=== PATIENT | male | born 1935 | race Caucasian/White ===

== ENCOUNTER 2021-03-24 23:36 | Observation (INO) | payer OTHER, MEDICAID ==
[~2021-03-24] VITALS: Ht 177.8 cm; Wt 94.8 kg
--- NOTE | 2021-03-25 01:11 | EKG ---
[facility] [address] [place] [address] Test Date: 2021-03-25 Test Time: 00:13:33 Pat Name: CARLIE ZAMORANO Department: Room: Gender: M Non Profit Financial Controller: : 1935 Requested By: TEMI SANCHEZ Order Number: [id number] Reading MD: Livan Cuenca Measurements Intervals [place] Rate: 82 P: MN: QRS: -90 QRSD: 134 T: 63 QT: 404 QTc: 475 Interpretive Statements SINUS RHYTHM VENTRICULAR PREMATURE COMPLEX(ES) NON SPECIFIC INTRAVENTRICULAR BLOCK NON SPECIFIC ST-T WAVE CHANGES Electronically Signed On 03-26-2021 12:43:03 REPAIR ORDER CLERK by Livan Cuenca
[2021-03-25 01:52] LABS: BASO % 0 % (0-3); EOS % 0 % (0-3); HEMATOCRIT 31.8 % (39.0-53.0); HEMOGLOBIN 10.2 g/dL (13.0-17.5); LYMPH # 0.7 x10^3/uL (1.0-4.8); LYMPH % 5 % (24-48); MEAN CORPUSCULAR HEMOGLOBIN 30 pg (25-35); MEAN CORPUSCULAR HGB CONC 32 g/dL (31-37); MEAN CORPUSCULAR VOLUME 94 fL (79-100); MONO # 0.8 x10^3/uL (0.0-1.1); MONO % 6 % (0-9); NEUT # 12.6 x10^3/uL (1.8-7.7); NEUT % 89 % (31-73); PLATELET COUNT 269 x10^3/uL (140-400); RED BLOOD COUNT 3.37 x10^6/uL (4.30-5.70); RED CELL DISTRIBUTION WIDTH 15.7 % (11.5-14.5); WHITE BLOOD COUNT 14.2 x10^3/uL (4.0-11.0)
[2021-03-25 02:00] LABS: PROTHROMBIN TIME PATIENT 14.9 SEC (11.7-14.0)
[2021-03-25 02:04] LABS: ALBUMIN 1.3 g/dL (3.4-5.0); ALBUMIN/GLOBULIN RATIO 0.3 (1.0-1.7); CALCIUM 7.9 mg/dL (8.5-10.1); CREATININE 8.8 mg/dL (0.7-1.3); GFR 5.8; POTASSIUM 3.8 mmol/L (3.5-5.1); TOTAL BILIRUBIN 0.5 mg/dL (0.2-1.0); TOTAL PROTEIN 5.3 g/dL (6.4-8.2)
[2021-03-25] MEDS ORDERED: DEXTROSE 50% 25 GM / 50ML DISP.SYRIN. IV ONE ×4 (02:10→12:30)
[2021-03-25] MEDS ORDERED: MORPHINE SULFATE 2 MG/ML INJ. IVP ONE ×4 (03:00→04:30)
--- NOTE | 2021-03-25 03:27 | RAD ---
EXAM: RIGHT SHOULDER 2 VIEWS. HISTORY: Fall. COMPARISON: None. FINDINGS: No fractures are identified. There is superior subluxation of the humeral head Y-view but n ot clearly on the frontal projection. Acromioclavicular joint mildly widened at 9 mm. There are chron ic right rib fractures. IMPRESSION: 1. Superior subluxation of the humeral head is consistent with rotator cuff arthropathy. 2. Mild widening of the right acromial clavicular joint. Correlate for focal tenderness to exclude ac romioclavicular injury. Electronically signed by: Jose Jones MD (03/25/2021 3:24 AM) [facility]
--- NOTE | 2021-03-25 03:28 | RAD ---
EXAM: CT HEAD WITHOUT CONTRAST. HISTORY: Fall. TECHNIQUE: Computed tomography of the head was performed without intravenous contrast. One or more of the following individualized dose reduction techniques were utilized for this examination: 1. Automated exposure control. 2. Adjustment of the mA and/or kV according to patient size. 3. Use of iterative reconstruction technique. COMPARISON: None. FINDINGS: There is no intracranial hemorrhage. Hypoattenuation within the white matter indicates mode rate chronic microangiopathic change. Prominence of the lateral ventricles and hemispheric sulci theo cates moderate atrophy. There are small mucus retention cysts in the maxillary sinuses. There are changes of bilateral catara ct surgery. The temporal bones are unremarkable. The calvarium reveals no suspicious lesions. There a re atherosclerotic calcifications of the internal carotid and vertebral arteries. IMPRESSION: 1. No acute intracranial findings. 2. Moderate atrophy and chronic microangiopathic white matter change. Electronically signed by: Jose Jones MD (03/25/2021 3:26 AM) [facility]
[2021-03-25] MEDS ORDERED: GLIM2TAB7 PO ×2 (04:16→13:08)
[2021-03-25] MEDS ORDERED: LOPE2TAB27 PO (04:16)
[2021-03-25] MEDS ORDERED: CLOT10TR PO (04:16)
[2021-03-25] MEDS ORDERED: BUSP7.5T PO (04:16)
[2021-03-25] MEDS ORDERED: ATOR80TA72 PO (04:16)
[2021-03-25] MEDS ORDERED: MIDO5TAB4 PO ×2 (04:16→13:08)
[2021-03-25] MEDS ORDERED: ASPI-630 PO ×2 (04:16→13:08)
[2021-03-25] MEDS ORDERED: TAMS0.4C97 PO (04:16)
[2021-03-25] MEDS ORDERED: FINA5TAB4 PO ×2 (04:16→13:08)
--- NOTE | 2021-03-25 04:40 | PHYS DOC ---
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 Patient has difficulty providing history, and is essentially only able to signaled that his right shoulder is hurting him. Per EMS patient staff was notified by another patient that he had fallen and was screaming. Was found on the floor next to his bed after this unwitnessed fall. Patient did not come with an MAR, medical history, or facesheet. We called his facility they are not able to relate any medical history, but were able to give the medication list which includes: BuSpar Aspirin Tamsulosin Atorvastatin Glimepiride Finasteride Midodrine Clotrimazole Loperamide Review of Systems: Review of Systems: Unable to complete ROS secondary to mental status Heart Score: C/O Chest Pain: N/A Current Medications: Current Medications Medications (Trade) Dose Ordered Sig/Caesar Start Time Stop Time Status Last Admin Dose Admin Dextrose (Dextrose 50%-Water Syringe) 50 gm 1X ONCE 03/25/21 02:30 03/25/21 02:31 DC 03/25/21 02:20 50 GM Morphine Sulfate (Morphine Sulfate) 2 mg 1X ONCE 03/25/21 04:30 03/25/21 04:31 03/25/21 04:00 2 MG Allergies: Allergies: Allergies Coded Allergies Type Severity Reaction Last Updated Verified No Known Drug Allergies 03/25/21 No Physical Exam: PE: Constitutional: Somnolent, appears uncomfortable with any movement, signaling to his right shoulder he is in pain. HENT: Dried blood on the forehead, I am told that this was tract from a forearm skin tear. No significant bruising. Eyes: Pupils 1 mm, equal, round, reactive. Cardiovascular:Heart rate regular rhythm, no murmur [] Lungs & Thorax: Bilateral breath sounds clear to auscultation. Mild chest wall tenderness to palpation. [] Abdomen: Diffuse abdominal tenderness to palpation. Skin: Sacral pressure ulcer present. Small skin tear to left upper extremity, older skin tear with significant scabbing and surrounding erythema on the left hand. Back: No tenderness, no CVA tenderness. [] Extremities: Right upper extremity with tenderness over the distal clavicle/AC joint. Passive range of motion intact, but with pain especially with abduction. Right lower extremity BKA, stump with pressure wound. Neurologic: Somnolent, answers questions with yes/no, moving all extremities. Current Patient Data: Labs: Laboratory Tests Test 03/25/21 01:40 White Blood Count 14.2 x10^3/uL (4.0-11.0) H Red Blood Count 3.37 x10^6/uL (4.30-5.70) L Hemoglobin 10.2 g/dL (13.0-17.5) L Hematocrit 31.8 % (39.0-53.0) L Mean Corpuscular Volume 94 fL (79-100) Mean Corpuscular Hemoglobin 30 pg (25-35) Mean Corpuscular Hemoglobin Concent 32 g/dL (31-37) Red Cell Distribution Width 15.7 % (11.5-14.5) H Platelet Count 269 x10^3/uL (140-400) Neutrophils (%) (Auto) 89 % (31-73) H Lymphocytes (%) (Auto) 5 % (24-48) L Monocytes (%) (Auto) 6 % (0-9) Eosinophils (%) (Auto) 0 % (0-3) Basophils (%) (Auto) 0 % (0-3) Neutrophils # (Auto) 12.6 x10^3/uL (1.8-7.7) H Lymphocytes # (Auto) 0.7 x10^3/uL (1.0-4.8) L Monocytes # (Auto) 0.8 x10^3/uL (0.0-1.1) Eosinophils # (Auto) 0.0 x10^3/uL (0.0-0.7) Basophils # (Auto) 0.0 x10^3/uL (0.0-0.2) Prothrombin Time 14.9 SEC (11.7-14.0) H Prothrombin Time INR 1.2 (0.8-1.1) H Sodium Level 135 mmol/L (136-145) L Potassium Level 3.8 mmol/L (3.5-5.1) Chloride Level 100 mmol/L (98-107) Carbon Dioxide Level 24 mmol/L (21-32) Anion Gap 11 (6-14) Blood Urea Nitrogen 51 mg/dL (8-26) H Creatinine 8.8 mg/dL (0.7-1.3) H Estimated GFR (Cockcroft-Gault) 5.8 BUN/Creatinine Ratio 6 (6-20) Glucose Level 40 mg/dL (70-99) *L Calcium Level 7.9 mg/dL (8.5-10.1) L Total Bilirubin 0.5 mg/dL (0.2-1.0) Aspartate Amino Transferase (AST) 13 U/L (15-37) L Alanine Aminotransferase (ALT) 16 U/L (16-63) Alkaline Phosphatase 129 U/L (46-116) H Total Protein 5.3 g/dL (6.4-8.2) L Albumin 1.3 g/dL (3.4-5.0) L Albumin/Globulin Ratio 0.3 (1.0-1.7) L SARS-CoV-2 Antigen (Rapid) Negative (NEGATIVE) Laboratory Tests 03/25/21 01:40 Laboratory Tests 03/25/21 01:40 Vital Signs: Vital Signs Date Time Temp Pulse Resp B/P (MAP) Pulse Ox O2 Delivery O2 Flow Rate FiO2 03/25/21 02:53 98 Room Air 03/25/21 02:15 58 101/51 (68) 03/25/21 00:50 98.2 24 98.2 EKG: EKG: Irregular rhythm. Rate 82. PVCs. QRS widening, nonspecific IVCD. Radiology/Procedures: Radiology/Procedures: [] Impression: [facility] [address] [place], [place] [id number] IMAGING REPORT Signed PATIENT: CARLIE ZAMORANO ACCOUNT: [id number] : 1935 LOCATION: ER AGE: 85 SEX: M EXAM STATUS: REG ER ORD. PHYSICIAN: TEMI SANCHEZ MD REASON: fall PROCEDURE: SHOULDER 2+V RIGHT EXAM: RIGHT SHOULDER 2 VIEWS. HISTORY: Fall. COMPARISON: None. FINDINGS: No fractures are identified. There is superior subluxation of the humeral head Y-view but not clearly on the frontal projection. Acromioclavicular joint mildly widened at 9 mm. There are chronic right rib fractures. IMPRESSION: 1. Superior subluxation of the humeral head is consistent with rotator cuff a rthropathy. 2. Mild widening of the right acromial clavicular joint. Correlate for focal tenderness to exclude acromioclavicular injury. Electronically signed by: Jose Jones MD (03/25/2021 3:24 AM) [facility] DICTATED and SIGNED BY: TEMI JONES MD DATE: 03/25/21 [id number] [facility] [address] [place] [address] IMAGING REPORT Signed PATIENT: CARLIE ZAMORANO ACCOUNT: [id number] : 1935 LOCATION: ER AGE: 85 SEX: M EXAM STATUS: REG ER ORD. PHYSICIAN: TEMI SANCHEZ MD REASON: fall, PATIENT UNABLE TO HOLD STILL TO DO HEAD AND NECK AT THIS TIME PROCEDURE: CT HEAD WO CONTRAST EXAM: CT HEAD WITHOUT CONTRAST. HISTORY: Fall. TECHNIQUE: Computed tomography of the head was performed without intravenous contrast. One or more of the following individualized dose reduction techniques were utilized for this examination: 1. Automated exposure control. 2. Adjustment of the mA and/or kV according to patient size. 3. Use of iterative reconstruction technique. COMPARISON: None. FINDINGS: There is no intracranial hemorrhage. Hypoattenuation within the white matter indicates moderate chronic microangiopathic change. Prominence of the lateral ventricles and hemispheric sulci indicates moderate atrophy. There are small mucus retention cysts in the maxillary sinuses. There are changes of bilateral cataract surgery. The temporal bones are unremarkable. The calvarium reveals no suspicious lesions. There are atherosclerotic calcifications of the internal carotid and vertebral arteries. IMPRESSION: 1. No acute intracranial findings. 2. Moderate atrophy and chronic microangiopathic white matter change. Electronically signed by: Jose Jones MD (03/25/2021 3:26 AM) [facility] DICTATED and SIGNED BY: TEMI JONES MD DATE: 03/25/21 [id number] [facility] [address] [place] [address] IMAGING REPORT Signed PATIENT: CARLIE ZAMORANO ACCOUNT: [id number] : 1935 LOCATION: ER AGE: 85 SEX: M EXAM STATUS: REG ER ORD. PHYSICIAN: TEMI SANCHEZ MD REASON: fall PROCEDURE: CT CERVICAL SPINE WO CONTRAST EXAM: CT CERVICAL SPINE WITHOUT CONTRAST. HISTORY: Fall. TECHNIQUE: Computed tomography of the cervical spine was performed without intravenous contrast. One or more of the following individualized dose reduction techniques were utilized for this examination: 1. Automated exposure control. 2. Adjustment of the mA and/or kV according to patient size. 3. Use of iterative reconstruction technique. COMPARISON: None. FINDINGS: Alignment is maintained. 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 No fractures are identified. Degenerative disc disease is severe at C6-7, moderate at C5-6 and mild from C3 through C5. There is no prevertebral soft tissue swelling. At C2-3, there is no significant stenosis. At C3-4, there is a small posterior disc-osteophyte complex. Uncovertebral os teoarthritis is moderate bilaterally. Neural foraminal stenosis is moderate bilaterally. At C4-5, there is a small posterior disc-osteophyte complex. Uncovertebral osteoarthritis is mild bilaterally. Neural foraminal stenosis is mild bilaterally. At C5-6, there is a moderate posterior disc-osteophyte complex. Central canal stenosis appears mild. Uncovertebral osteoarthritis is moderate bilaterally. Neural foraminal stenosis is moderate to severe on the right and moderate on the left. At C6-7, there is a moderate posterior disc-osteophyte complex. Uncovertebral osteoarthritis is moderate bilaterally. Neural foraminal stenosis is mild to moderate bilaterally. Within the upper thoracic spine, there is mild superior plate depression at T2 and T3. IMPRESSION: 1. Mild superior plate depression at T2 and T3 does not appear acute. No acute fractures are identified. 2. Moderate to severe degenerative changes as detailed above. Electronically signed by: Jose Jones MD (03/25/2021 5:13 AM) [facility] DICTATED and SIGNED BY: TEMI JONES MD DATE: 03/25/21 [id number] [facility] [address] [place] [address] IMAGING REPORT Signed PATIENT: CARLIE ZAMORANO ACCOUNT: [id number] : 1935 LOCATION: ER AGE: 85 SEX: M EXAM STATUS: REG ER ORD. PHYSICIAN: TEMI SANCHEZ MD REASON: fall, PATIENT MOVING NOT FOLLOWING COMMANDS. PROCEDURE: CT CHEST ABD PELVIS W/CONTRAST EXAM: CT OF THE CHEST, ABDOMEN AND PELVIS WITH CONTRAST. HISTORY: Fall, pain. TECHNIQUE: Computed tomography of the chest, abdomen and pelvis was performed after the intravenous administration of iodinated contrast. One or more of the following individualized dose reduction techniques were utilized for this examination: 1. Automated exposure control. 2. Adjustment of the mA and/or kV according to patient size. 3. Use of iterative reconstruction technique. COMPARISON: None. FINDINGS: Bone windows reveal no suspicious lesions. 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 There are no pathologically enlarged mediastinal or axillary lymph nodes. There is no pleural or pericardial effusion. The heart is not enlarged. There are atherosclerotic calcifications of the coronary arteries. There is atelectasis in the left greater than right bases. There is a calcified granuloma in the left upper lobe. The left hemidiaphragm is moderately elevated. Gallstones are noted. The liver, spleen, pancreas, and adrenal glands are u nremarkable. There is moderate bilateral renal atrophy. There are no pathologically enlarged lymph nodes. There is wall thickening of the colon on the left greater than right. There is no small bowel obstruction. Portions of the left abdomen are excluded from the [id number]. A bladder diverticulum anteriorly measures 15 mm. IMPRESSION: 1. Wall thickening of the colon on the left greater than right is consistent with colitis. 2. Cholelithiasis. Electronically signed by: Jose Jones MD (03/25/2021 5:22 AM) [facility] DICTATED and SIGNED BY: TEMI JONES MD DATE: 03/25/21 [id number] Course & Med Decision Making: Course & Med Decision Making Pertinent Labs and Imaging studies reviewed. (See chart for details) Patient is an 85-year-old male who [facility]. On arrival is slightly somnolent. Is found to be hypoglycemic to 40. This corrected with 1 amp of D50 to 100. He is complaining of pain in the right shoulder.X-ray and exam consistent with AC separation on the right shoulder. He also has chest wall tenderness to palpation as well as abdominal tenderness to palpation. CT head is negative. Awaiting CT neck, chest, abdomen, pelvis. [id number] No acute traumatic injuries seen on CT imaging. There was evidence of colitis on CT imaging, he has recently been treated for c diff, so this may be remaining inflammatory changes. Will defer any abx at this time. Blood glucose has remained stable at 93. Feel he will require admission for pain control, observation of glucose status, and for his sacral wound. [id number] Dragon Disclaimer: Dragon Disclaimer: This electronic medical record was generated, in whole or in part, using a voice recognition dictation system. Departure Departure Impression: Primary Impression: Hypoglycemia Additional Impressions: Separation of right acromioclavicular joint Sacral pressure sore Colitis Disposition: ADMITTED INPATIENT Admitting Physician: Madi. Banks Condition: STABLE Referrals: UNKNOWN PCP NAME (PCP) TEMI SANCHEZ MD Mar 25, 2021 04:40
[2021-03-25] MEDS ORDERED: CONTRAST GIVEN. MC PRN (05:00)
--- NOTE | 2021-03-25 05:15 | RAD ---
EXAM: CT CERVICAL SPINE WITHOUT CONTRAST. HISTORY: Fall. TECHNIQUE: Computed tomography of the cervical spine was performed without intravenous contrast. One or more of the following individualized dose reduction techniques were utilized for this examination: 1. Automated exposure control. 2. Adjustment of the mA and/or kV according to patient size. 3. Use of iterative reconstruction technique. COMPARISON: None. FINDINGS: Alignment is maintained. 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 No fractures are identif ied. Degenerative disc disease is severe at C6-7, moderate at C5-6 and mild from C3 through C5. There is no prevertebral soft tissue swelling. At C2-3, there is no significant stenosis. At C3-4, there is a small posterior disc-osteophyte complex. Uncovertebral osteoarthritis is moderate bilaterally. Neural foraminal stenosis is moderate bilaterally. At C4-5, there is a small posterior disc-osteophyte complex. Uncovertebral osteoarthritis is mild jennifer aterally. Neural foraminal stenosis is mild bilaterally. At C5-6, there is a moderate posterior disc-osteophyte complex. Central canal stenosis appears mild. Uncovertebral osteoarthritis is moderate bilaterally. Neural foraminal stenosis is moderate to severe on the right and moderate on the left. At C6-7, there is a moderate posterior disc-osteophyte complex. Uncovertebral osteoarthritis is moder ate bilaterally. Neural foraminal stenosis is mild to moderate bilaterally. Within the upper thoracic spine, there is mild superior plate depression at T2 and T3. IMPRESSION: 1. Mild superior plate depression at T2 and T3 does not appear acute. No acute fractures are identifi ed. 2. Moderate to severe degenerative changes as detailed above. Electronically signed by: Jose Jones MD (03/25/2021 5:13 AM) [facility]
--- NOTE | 2021-03-25 05:25 | RAD ---
EXAM: CT OF THE CHEST, ABDOMEN AND PELVIS WITH CONTRAST. HISTORY: Fall, pain. TECHNIQUE: Computed tomography of the chest, abdomen and pelvis was performed after the intravenous a dministration of iodinated contrast. One or more of the following individualized dose reduction techn iques were utilized for this examination: 1. Automated exposure control. 2. Adjustment of the mA and/or kV according to patient size. 3. Use of iterative reconstruction technique. COMPARISON: None. FINDINGS: Bone windows reveal no suspicious lesions. There is erosive arthritis of the right glenohum eral joint with a large joint effusion. There are no pathologically enlarged mediastinal or axillary lymph nodes. There is no pleural or chino cardial effusion. The heart is not enlarged. There are atherosclerotic calcifications of the coronary arteries. There is atelectasis in the left greater than right bases. There is a calcified granuloma in the left upper lobe. The left hemidiaphragm is moderately elevated. Gallstones are noted. The liver, spleen, pancreas, and adrenal glands are unremarkable. There is mode rate bilateral renal atrophy. There are no pathologically enlarged lymph nodes. There is wall thickening of the colon on the left greater than right. There is no small bowel obstruc tion. Portions of the left abdomen are excluded from the [id number]. A bladder diverticulum anteri celena measures 15 mm. IMPRESSION: 1. Wall thickening of the colon on the left greater than right is consistent with colitis. 2. Cholelithiasis. Electronically signed by: Jose Jones MD (03/25/2021 5:22 AM) [place]
[2021-03-25] MEDS ORDERED: IOHEXOL 300 MG/ML 100ML VIAL. IV ONE (05:30)
[2021-03-25] MEDS ORDERED: DEXTROSE 50% 25 GM / 50ML DISP.SYRIN. IV PRN (05:45)
[2021-03-25] MEDS ORDERED: IV DEXTROSE 10% 500 ML IV PRN (12:30)
[2021-03-25 12:58] LABS: BILIRUBIN,URINE NEGATIVE (NEG); CLARITY,URINE TURBID; COLOR,URINE AMBER; NITRITE,URINE NEGATIVE (NEG); PROTEIN,URINE >=300 mg/dL (NEG-TRACE); UROBILINOGEN,URINE 0.2 mg/dL (0.2 mg/dL)
[2021-03-25] MEDS ORDERED: FERR325T14 PO (13:08)
[2021-03-25] MEDS ORDERED: OMEG100021 PO (13:08)
[2021-03-25] MEDS ORDERED: DICL20GE TP (13:08)
[2021-03-25] MEDS ORDERED: BUSP5TAB PO (13:08)
[2021-03-25] MEDS ORDERED: OMEP20CA16 PO (13:08)
[2021-03-25 13:17] LABS: BACTERIA,URINE FEW /HPF (0-FEW); WBC,URINE TNTC /HPF (0-4)
[2021-03-25] MEDS: VANCOMYCIN 125 MG/2.5 ML ORAL SOLUTION. PO SCH ×4 (13:34→21:39)
--- NOTE | 2021-03-25 13:52 | HP ---
DATE OF SERVICE: 03/25/2021 ADMIT DATE: 03/25/2021 HISTORY OF PRESENT ILLNESS: The patient is an 85-year-old male patient, resident at [facility], who was admitted there for respite care for about a month according to the documentation there. He apparently has end-stage renal disease, on hemodialysis and also has C. difficile colitis. He continues to have diarrhea and apparently had developed severe hypoglycemia and was brought to the Emergency Room of [facility]. The patient himself was unable to give any useful history. Apparently per EMS, the patient's staff was notified by another patient that he had fallen and was screaming, was found to be on the floor next to his bed after his unwitnessed fall. It is really very limited information in the record that he is not one my patient with the case. From little information that I have that his past medical history is significant for diabetes, hypertension, hyperlipidemia, benign prostatic hypertrophy, end-stage renal disease, on hemodialysis, has C. diff colitis. On arrival to the Emergency Room, he has had lab work and extensive imaging studies. His lab work showed a white cell count is slightly elevated at 14,200. He has normochromic normocytic anemia, normal platelet count. His prothrombin time and INR slightly elevated. His chemistry showed he has hypoglycemic with a blood sugar of only 40. He was extensively investigated and has a CT scan of the cervical spine, CT scan of the head. CT scan of the head showed there is no intracranial hemorrhage, hypoattenuation within the white matter indicates moderate chronic microangiopathic changes, prominence of the lateral ventricles and hemispheric sulci indicates moderate atrophy. There are small mucous retention cyst in the maxillary sinuses. There are changes of bilateral cataract surgery. The temporal bones are unremarkable. The calvarium reveals no suspicious lesions. There are atherosclerotic calcification of the internal carotid and vertebral arteries. CT scan of the cervical spine showed mild superior endplate depression at T2 and T3, does not appear to be acute. No acute fracture identified. Moderate to severe degenerative changes as detailed. He also has x-ray of his right shoulder, which basically showed severe subluxation of the humeral head consistent with rotator cuff insufficiency, mild widening of the right acromioclavicular joint correlate for focal tenderness to exclude acromioclavicular injury. He did have CT scan of the chest, abdomen and pelvis, which showed the patient has wall thickening of the colon on the left greater than right, consistent with colitis and cholelithiasis. The patient was admitted with hypoglycemia, separation of the right acromioclavicular joint, sacral pressure ulcer, C. diff colitis, end-stage renal disease. PAST MEDICAL HISTORY: Significant for type 2 diabetes mellitus, hyperlipidemia, benign prostatic hypertrophy, end-stage renal disease, on hemodialysis. PAST SURGICAL HISTORY: Significant for arteriovenous fistula creation and has a right below-knee amputation. FAMILY HISTORY: Unobtainable. SOCIAL HISTORY: He apparently lives in his own house, currently in respite care at [facility]. No further information obtainable about his smoking habit or alcohol drinking. ALLERGIES: He has no known drug allergies. MEDICATIONS: He is currently on following medications: He is on Lidoderm, lidocaine/prilocaine cream 2.5/10.5 applied to excess topically every 48 hours for dialysis. He has tamsulosin 0.4 mg twice a day, ferrous sulfate 325 mg once a day, omeprazole 20 mg once a day, clotrimazole cream 1% apply topically once a day, fish oil 1000 mg once a day, aspirin chewable tablet 81 mg once a day, atorvastatin calcium 40 mg once a day, midodrine 5 mg 3 times a day, glimepiride tablet 2 mg daily, finasteride 5 mg once a day, diclofenac sodium gel apply topically 4 times a day, and buspirone 7.5 mg twice a day. PHYSICAL EXAMINATION: GENERAL: On arrival to the Emergency Room, the patient was obtunded pale, not jaundiced, cyanosed. No thyromegaly. No jugular venous distention. No limb edema. VITAL SIGNS: His heart rate was 86, blood pressure was 91/52, temperature was 98.2, respiratory rate was 24 and his oxygen saturation was 95% on room air. HEAD, EYES, EARS, NOSE, AND THROAT: Normocephalic, atraumatic. NECK: Supple. HEART: Showed normal first and second heart sounds. No gallop, rub or murmur. CHEST: Showed central trachea, equal bilateral chest expansion, air entry, vesicular breath sounds. No crepitation or rhonchi. ABDOMEN: Distended, soft, nontender. NEUROLOGIC: He was encephalopathic, but moans and groans. He moves upper extremities without difficulty. He has right below-knee amputation, has also sacral decubitus ulcer. LABORATORY DATA: His lab work on arrival showed a serum sodium 135, potassium 3.8, chloride 100, bicarbonate 24, anion gap of 11, BUN 51, creatinine 8.8. Estimated GFR was 5.8 mL per minute. His glucose was 40, lactic acid was 1.4. Total bilirubin, AST, ALT, alkaline phosphatase were normal. Total protein 5.3, albumin was 1.2. ASSESSMENT AND PLAN: In summary, this is an 85-year-old male patient, a resident at [facility], who was admitted with unwitnessed fall. He was diagnosed with hypoglycemia, separation of the right acromioclavicular joint, sacral decubitus ulcer, Clostridium difficile colitis. He has also end-stage renal disease, severe protein-calorie malnutrition. For his hypoglycemia, I ordered another 50 mL of 50% dextrose and continuous infusion of D10 at 30 mL per hour. We will continue with all his medication and start him on oral vancomycin. We will consult the orthopedic surgeon as well as the Nephrology team. KATHRINE/RAHUL DR: Nasra TID: [id number]
[2021-03-25] MEDS: LACTOBACILLUS RHAMNOSUS GG 1 CAPSULE. PO SCH ×3 (14:00→21:39)
--- NOTE | 2021-03-25 14:30 | NUR ---
Pt arrived from ED via gurney. Transferred to bed. Multiple wounds noted. Consults called by Maryuri. Daughter at bedside. Call light within reach.
[2021-03-25 15:00] VITALS: BP 121/46
--- NOTE | 2021-03-25 15:10 | NUR ---
Daughter at nursing station stating she would like to make pt DNR and only comfort care. Patient no longer wants to do dialysis. Spoke to Dr. Dc received orders for DNR. Called and verified with Violet. ARNAV paperwork in chart. Updated Dr. Ellsworth.
--- NOTE | 2021-03-25 16:30 | NUR ---
Wound Care Wound Type/Assessment: Pt seen at bedside with JANETH Manzo, pt just transferred from ED with multiple wounds. Pt has multiple scattered skin tears on hands and arms of varying age, all are superficial, with periwound bruising and edema. 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 Assisted pt onto his side to clean up stool, as pt has been having multiple liquid stools, and discovered an unstageable pressure ulcer on his coccyx/sacral areas, with cunningham slough coverage and multiple open superficial areas surrounding large, main ulceration. Unable to appreciate depth of wound, as adherent slough was covering, mild odor noted, moderate amount of pain with any touch to this area. Treatment Recommendations/Plan: Coccyx: [place] Calazime cream to chino areas and wounds, as liquid stool is breaking down surrounding skin, also unable to apply dressing d/t frequency and consistency of stools at this time. R BKA: Xeroform gauze, Aquacel foam, change every 3-4 days, float stump on pillow Bilateral hands:Xeroform gauze, ABD and kerlix, change every 2-3 days, depending on drainage. Education provided: to RN re: POC Offloading surface/device: pillows, wedge, P500 bed if pt is not discharged tomorrow Recommended Referrals/Tests: n/a Discharge Recommendations for dressings: see treatment plan above
[2021-03-25] MEDS ORDERED: MORPHINE SULFATE 4 MG/ML INJ. IV PRN (17:30)
[2021-03-25 19:00] VITALS: BP 100/37
--- NOTE | 2021-03-25 19:08 | NUR ---
Completed wound pictures and dressings with clinical pharmacy coordinator's.
[2021-03-25] MEDS: TAMSULOSIN 0.4 MG CAP.ER.24H. PO SCH ×2 (21:00→21:39)
[2021-03-25 23:00] VITALS: BP 107/30
[2021-03-26 03:00] VITALS: BP 102/54
[2021-03-26 07:00] VITALS: BP 83/50
--- NOTE | 2021-03-26 08:43 | PDOC2 ---
CONSULT Date of Consult Date of Consult DATE: 03/26/21 TIME: 08:38 Reason for Consult Reason for Consult: Right shoulder rotator cuff tear arthropathy Referring Physician Referring Physician: Dao Identification/Chief Complaint Chief Complaint Denies shoulder pain Source Source: Patient History of Present Illness Reason for Visit: Patient is a 85-year-old with end-stage renal disease on dialysis who was admitted when he was found down on the floor from his care facility. He had had some shoulder pain in the past and x-rays were obtained and I was asked to see him in consultation. Currently, he is denying any shoulder pain. He tells me he has had some shoulder pain in the past but that it does not really hurt bad. He denies any recent injuries that he can recall. Past Medical History Pulmonary: No pertinent hx GI: Other (Diarrhea) Musculoskeletal: Osteoarthritis Renal/: Chronic renal failure Endocrine: Diabetes Past Surgical History Past Surgical History: Other (Below knee amputation) Family History Family History: Heart Disease Social History No ALCOHOL: none Lives: Correction Current Problem List Problem List Problems Medical Problems: (1) Colitis Status: Acute (2) Hypoglycemia Status: Acute (3) Sacral pressure sore Status: Acute (4) Separation of right acromioclavicular joint Status: Acute Current Medications Current Medications Current Medications Dextrose (Dextrose 50%-Water Syringe) 25 gm STK-MED ONCE IV ; Start 03/25/21 at 02:10; Stop 03/25/21 at 02:10; Status DC Dextrose (Dextrose 50%-Water Syringe) 50 gm 1X ONCE IV Last administered on 03/25/21at 02:20; Start 03/25/21 at 02:30; Stop 03/25/21 at 02:31; Status DC Morphine Sulfate (Morphine Sulfate) 2 mg 1X ONCE IVP Last administered on 03/25/21at 02:43; Start 03/25/21 at 03:00; Stop 03/25/21 at 03:01; Status DC Morphine Sulfate (Morphine Sulfate) 2 mg 1X ONCE IVP Last administered on 03/25/21at 02:53; Start 03/25/21 at 03:30; Stop 03/25/21 at 03:31; Status DC Morphine Sulfate (Morphine Sulfate) 2 mg 1X ONCE IVP Last administered on 03/25/21at 04:00; Start 03/25/21 at 04:00; Stop 03/25/21 at 04:01; Status DC Morphine Sulfate (Morphine Sulfate) 2 mg 1X ONCE IVP Last administered on 03/25/21at 04:00; Start 03/25/21 at 04:30; Stop 03/25/21 at 04:31; Status DC Iohexol (Omnipaque 300 Mg/ml) 75 ml 1X ONCE IV Last administered on 03/25/21at 05:00; Start 03/25/21 at 05:30; Stop 03/25/21 at 05:31; Status DC Info (CONTRAST GIVEN -- Rx MONITORING) 1 each PRN DAILY PRN MC SEE COMMENTS; Start 03/25/21 at 05:00; Stop 03/27/21 at 04:59 Dextrose (Dextrose 50%-Water Syringe) 12.5 gm PRN Q15MIN PRN IV SEE COMMENTS; Start 03/25/21 at 05:45 Dextrose (Dextrose 50%-Water Syringe) 25 gm 1X ONCE IV Last administered on 03/25/21at 11:58; Start 03/25/21 at 12:00; Stop 03/25/21 at 12:03; Status DC Dextrose (Dextrose 50%-Water Syringe) 25 gm 1X ONCE IV Last administered on 03/25/21at 12:35; Start 03/25/21 at 12:30; Stop 03/25/21 at 12:31; Status DC Dextrose 500 ml @ 0 mls/hr CONT PRN IV SEE I/O RECORD Last administered on 03/25/21at 13:29; Start 03/25/21 at 12:30 Vancomycin HCl (Vancomycin Oral Solution) 125 mg [id number] PO Last administered on 03/25/21at 13:34; Start 03/25/21 at 13:00 Lactobacillus Rhamnosus (Culturelle) 1 cap BID PO ; Start 03/25/21 at 14:00 Tamsulosin HCl (Flomax) 0.8 mg QHS PO ; Start 03/25/21 at 21:00 Morphine Sulfate (Morphine Sulfate) 4 mg PRN Q4HRS PRN IV PAIN; Start 03/25/21 at 17:30 Active Scripts Active Reported Voltaren Arthritis Pain (Diclofenac Sodium) 20 Gm Gel..gram. 1 % TP QID Buspirone Hcl 5 Mg Tablet 7.5 Mg PO BID Finasteride 5 Mg Tablet 1 Tab PO DAILY Glimepiride 2 Mg Tablet 1 Tab PO DAILY Midodrine Hcl 5 Mg Tablet 5 Mg PO DAILY Fish Oil 1,000 mg Softgel (Sibley-3/Dha/Epa/Fish Oil) 1,000 Mg Capsule 1,000 Mg PO DAILY Omeprazole 20 Mg Capsule.dr 1 Cap PO DAILY Ferrous Sulfate 325 Mg Tablet 1 Tab PO DAILY Loperamide (Loperamide Hcl) 2 Mg Tablet 1 Tab PO Q4HRS 30 Days Clotrimazole 10 Mg Evans 1 Tab PO 5XDAY Glimepiride 2 Mg Tablet 1 Tab PO DAILY Atorvastatin Calcium 80 Mg Tablet 80 Mg PO QHS Flomax (Tamsulosin Hcl) 0.4 Mg Cap.er.24h 1 Cap PO BID Aspirin 81 Mg Tab.chew 1 Tab PO DAILY Allergies Allergies: Coded Allergies: No Known Drug Allergies (Unverified , 03/25/21) ROS General: YES: Fatigue; No: Chills, Night Sweats, Malaise, Appetite, Other PSYCHOLOGICAL ROS: No: Anxiety, Behavioral Disorder, Concentration difficultie, Decreased libido, Depression, Disorientation, Hallucinations, Hostility, Ir ritablity, Memory difficulties, Mood Swings, Obsessive thoughts, Physical abuse, Sexual abuse, Sleep disturbances, Suicidal ideation, Other Eyes: No Blurry vision, No Decreased vision, No Double vision, No Dry eyes, No Excessive tearing, No Eye Pain, No Itchy Eyes, No Loss of vision, No Photophobia, No Scotomata, No Uses contacts, No Uses glasses, No Other HEENT: No: Heacaches, Visual Changes, Hearing change, Nasal congestion, Nasal discharge, Oral lesions, Sinus pain, Sore Throat, Epistaxis, Sneezing, Snoring, Tinnitus, Vertigo, Vocal changes, Other ALLERGY AND IMMUNOLOGY: No: Hives, Insect Bite Sensitivity, Itchy/Watery Eyes, Nasal Congestion, Post Nasal Drip, Seasonal Allergies, Other Hematological and Lymphatic: No: Bleeding Problems, Blood Clots, Blood Transfusions, Brusing, Night Sweats, Pallor, Swollen Lymph Nodes, Other ENDOCRINE: No: Breast Changes, Galactorrhea, Hair Pattern Changes, Hot Flashes, Malaise/lethargy, Mood Swings, Palpitations, Polydipsia/polyuria, Skin Changes, Temperature Intolerance, Unexpected Weight Changes, Other Breast: No New/Changing Breast Lumps, No Nipple changes, No Nipple discharge, No Other Respiratory: No: Cough, Hemoptysis, Orthopnea, Pleuritic Pain, Shortness of breath, SOB with excertion, Sputum Changes, Stridor, Tachypnea, Wheezing, Other Cardiovascular: No Chest Pain, No Palpitations, No Orthopnea, No Paroxysmal Noc. Dyspnea, No Edema, No Lt Headedness, No Other Gastrointestinal: Yes Diarrhea Genitourinary: No Dysuria, No Frequency, No Incontinence, No Hematuria, No Retention, No Discharge, No Urgency, No Pain, No Flank Pain, No Other, No , No , No , No , No , No , No Musculoskeletal: Yes Joint Pain, Yes Joint Stiffness Neurological: No Behavorial Changes, No Bowel/Bladder ControlChng, No C onfusion, No Dizziness, No Gait Disturbance, No Headaches, No Impaired Coord/balance, No Memory Loss, No Numbness/Tingling, No Seizures, No Speech Problems, No Tremors, No Visual Changes, No Weakness, No Other Skin: No Dry Skin, No Eczema, No Hair Changes, No Lumps, No Mole Changes, No Mottling, No Nail Changes, No Pruritus, No Rash, No Skin Lesion Changes, No Other, No Acne Physical Exam General: Alert, No acute distress HEENT: Atraumatic, EOMI Lungs: Other (Respirations unlabored with symmetric chest rise) Heart: Regular rate Abdomen: Soft, No tenderness Extremities: No edema, Normal pulses Neuro: Normal speech, Sensation intact Psych/Mental Status: Mental status NL, Mood NL MUSCULOSKELETAL: Other (He has a mild fullness around his right shoulder. He refused any exam this morning.) Vitals VITALS Vital Signs Date Time Temp Pulse Resp B/P (MAP) Pulse Ox O2 Delivery O2 Flow Rate FiO2 03/26/21 07:54 Room Air 03/26/21 07:00 97.6 87 22 83/50 (61) 88 97.6 03/25/21 20:00 2.0 Labs Labs Laboratory Tests Test 03/24/21 12:15 03/25/21 01:40 03/25/21 02:28 03/25/21 05:06 Urine Collection Type Unknown Urine Color Rosio Urine Clarity Turbid Urine pH 7.0 (<5.0-8.0) Urine Specific Carey 1.015 (1.000-1.030) Urine Protein >=300 mg/dL (NEG-TRACE) Urine Glucose (UA) Negative mg/dL (NEG) Urine Ketones (Stick) Negative mg/dL (NEG) Urine Blood Large (NEG) Urine Nitrite Negative (NEG) Urine Bilirubin Negative (NEG) Urine Urobilinogen Dipstick 0.2 mg/dL (0.2 mg/dL) Urine Leukocyte Esterase Large (NEG) Urine RBC 3-5 /HPF (0-2) Urine WBC Tntc /HPF (0-4) Urine Squamous Epithelial Cells None /LPF Urine Bacteria Few /HPF (0-FEW) White Blood Count 14.2 x10^3/uL (4.0-11.0) Red Blood Count 3.37 x10^6/uL (4.30-5.70) Hemoglobin 10.2 g/dL (13.0-17.5) Hematocrit 31.8 % (39.0-53.0) Mean Corpuscular Volume 94 fL (79-100) Mean Corpuscular Hemoglobin 30 pg (25-35) Mean Corpuscular Hemoglobin Concent 32 g/dL (31-37) Red Cell Distribution Width 15.7 % (11.5-14.5) Platelet Count 269 x10^3/uL (140-400) Neutrophils (%) (Auto) 89 % (31-73) Lymphocytes (%) (Auto) 5 % (24-48) Monocytes (%) (Auto) 6 % (0-9) Eosinophils (%) (Auto) 0 % (0-3) Basophils (%) (Auto) 0 % (0-3) Neutrophils # (Auto) 12.6 x10^3/uL (1.8-7.7) Lymphocytes # (Auto) 0.7 x10^3/uL (1.0-4.8) Monocytes # (Auto) 0.8 x10^3/uL (0.0-1.1) Eosinophils # (Auto) 0.0 x10^3/uL (0.0-0.7) Basophils # (Auto) 0.0 x10^3/uL (0.0-0.2) Prothrombin Time 14.9 SEC (11.7-14.0) Prothromb Time International Ratio 1.2 (0.8-1.1) Sodium Level 135 mmol/L (136-145) Potassium Level 3.8 mmol/L (3.5-5.1) Chloride Level 100 mmol/L (98-107) Carbon Dioxide Level 24 mmol/L (21-32) Anion Gap 11 (6-14) Blood Urea Nitrogen 51 mg/dL (8-26) Creatinine 8.8 mg/dL (0.7-1.3) Estimated GFR (Cockcroft-Gault) 5.8 BUN/Creatinine Ratio 6 (6-20) Glucose Level 40 mg/dL (70-99) Lactic Acid Level 1.4 mmol/L (0.4-2.0) Calcium Level 7.9 mg/dL (8.5-10.1) Total Bilirubin 0.5 mg/dL (0.2-1.0) Aspartate Amino Transf (AST/SGOT) 13 U/L (15-37) Alanine Aminotransferase (ALT/SGPT) 16 U/L (16-63) Alkaline Phosphatase 129 U/L (46-116) Troponin I High Sensitivity 16 ng/L (4-75) Total Protein 5.3 g/dL (6.4-8.2) Albumin 1.3 g/dL (3.4-5.0) Albumin/Globulin Ratio 0.3 (1.0-1.7) SARS-CoV-2 RNA (CJ) Negative (Negative) SARS-CoV-2 Antigen (Rapid) Negative (NEGATIVE) Glucose (Fingerstick) 100 mg/dL (70-99) 93 mg/dL (70-99) Test 03/25/21 11:56 03/25/21 14:10 03/25/21 15:03 03/25/21 17:32 Glucose (Fingerstick) 33 mg/dL (70-99) 153 mg/dL (70-99) 151 mg/dL (70-99) 98 mg/dL (70-99) Test 03/25/21 19:01 03/25/21 23:04 03/26/21 01:03 03/26/21 03:02 Glucose (Fingerstick) 88 mg/dL (70-99) 102 mg/dL (70-99) 103 mg/dL (70-99) 97 mg/dL (70-99) Test 03/26/21 05:00 03/26/21 07:37 Glucose (Fingerstick) 83 mg/dL (70-99) 66 mg/dL (70-99) Laboratory Tests Test 03/25/21 11:56 03/25/21 14:10 03/25/21 15:03 03/25/21 17:32 Glucose (Fingerstick) 33 mg/dL (70-99) 153 mg/dL (70-99) 151 mg/dL (70-99) 98 mg/dL (70-99) Test 03/25/21 19:01 03/25/21 23:04 03/26/21 01:03 03/26/21 03:02 Glucose (Fingerstick) 88 mg/dL (70-99) 102 mg/dL (70-99) 103 mg/dL (70-99) 97 mg/dL (70-99) Test 03/26/21 05:00 03/26/21 07:37 Glucose (Fingerstick) 83 mg/dL (70-99) 66 mg/dL (70-99) Images Images Shoulder x-rays were interpreted by myself. Report is reviewed. He has changes consistent with rotator cuff tear arthropathy. Widened AC joint noted Assessment/Plan Assessment/Plan I offered him a glenohumeral injection, he declined telling me that his shoulder does not hurt that much at all. From my standpoint he can weight-bear as tolerated and use his arm as tolerated. He can follow-up with orthopedics on an as-needed basis. Per report from nursing, family may explore hospice care for him and discontinue dialysis. BEBETO LUU II, MD Mar 26, 2021 08:42
[2021-03-26] MEDS: VANCOMYCIN 125 MG/2.5 ML ORAL SOLUTION. PO SCH ×2 (09:00→13:00)
[2021-03-26] MEDS: LACTOBACILLUS RHAMNOSUS GG 1 CAPSULE. PO SCH (09:00)
[2021-03-26] MEDS ORDERED: MORPHINE SULFATE 20 MG/ML CONC SOLUTION. SL PRN (09:15)
--- NOTE | 2021-03-26 10:43 | NUR ---
AMADA following. Discussed with RN, pt from [facility], room air, dysphagia III diet. Pt wanting to stop dialysis, family has made pt a DNR. AMADA spoke with [facility], and pt's daughter/ARNAV Greer (ph: [phone]), the plan is for pt to go to [facility] today. [facility] will arrange the transportation. Requested clinicals faxed to [facility] at fax: [phone] and fax: [phone]. Awaiting discharge orders. Breanna quintero [place] (ph: [phone]) will call with the transportation time. RN and Dr. Dc notified. AMADA will continue to follow. Addendum: 03/26/21 at 1348 by XOCHILT YBARRA Pt discharging to [facility] between [id number] via [facility] non emergent ambulance. [facility] were unable to find stretcher transportation today. Discharge orders faxed to [facility] and [facility]. RN, family and [facility] worker notified of transportation time. No further SW needs.
[2021-03-26 11:00] VITALS: BP 115/36
--- NOTE | 2021-03-26 11:47 | PDOC2 ---
CONSULT Date of Consult Date of Consult DATE: 03/26/21 TIME: 11:41 Reason for Consult Reason for Consult: ESRD Referring Physician Referring Physician: ELEN Source Source: Chart review History of Present Illness Reason for Visit: THIS IS AN 85 YR OLD WITH ESRD. ADMITTED WITH SEVERE HYPOGLYCEMIA AND DIARRHEA AND WEAKNESS. HAS ALSO HAD FALLS AND CONFUSION. HE HAS A LEFT FA [facility] FOR HIS DIALYSIS ACCESS. LABS ARE C/W ESRD. PAST MEDICAL HISTORY: Significant for type 2 diabetes mellitus, hyperlipidemia, benign prostatic hypertrophy, end-stage renal disease, on hemodialysis. Past Medical History Pulmonary: No pertinent hx GI: Other (Diarrhea) Musculoskeletal: Osteoarthritis Renal/: Chronic renal failure Endocrine: Diabetes, Hyperparathyroidism Past Surgical History Past Surgical History: Other (Below knee amputation) Family History Family History: Heart Disease Social History No ALCOHOL: none Lives: Custodial Current Problem List Problem List Problems Medical Problems: (1) Colitis Status: Acute (2) Hypoglycemia Status: Acute (3) Sacral pressure sore Status: Acute (4) Separation of right acromioclavicular joint Status: Acute Current Medications Current Medications Current Medications Dextrose (Dextrose 50%-Water Syringe) 25 gm STK-MED ONCE IV ; Start 03/25/21 at 02:10; Stop 03/25/21 at 02:10; Status DC Dextrose (Dextrose 50%-Water Syringe) 50 gm 1X ONCE IV Last administered on 03/25/21at 02:20; Start 03/25/21 at 02:30; Stop 03/25/21 at 02:31; Status DC Morphine Sulfate (Morphine Sulfate) 2 mg 1X ONCE IVP Last administered on 03/25/21at 02:43; Start 03/25/21 at 03:00; Stop 03/25/21 at 03:01; Status DC Morphine Sulfate (Morphine Sulfate) 2 mg 1X ONCE IVP Last administered on 03/25/21at 02:53; Start 03/25/21 at 03:30; Stop 03/25/21 at 03:31; Status DC Morphine Sulfate (Morphine Sulfate) 2 mg 1X ONCE IVP Last administered on 03/25/21at 04:00; Start 03/25/21 at 04:00; Stop 03/25/21 at 04:01; Status DC Morphine Sulfate (Morphine Sulfate) 2 mg 1X ONCE IVP Last administered on 03/25/21at 04:00; Start 03/25/21 at 04:30; Stop 03/25/21 at 04:31; Status DC Iohexol (Omnipaque 300 Mg/ml) 75 ml 1X ONCE IV Last administered on 03/25/21at 05:00; Start 03/25/21 at 05:30; Stop 03/25/21 at 05:31; Status DC Info (CONTRAST GIVEN -- Rx MONITORING) 1 each PRN DAILY PRN MC SEE COMMENTS; Start 03/25/21 at 05:00; Stop 03/27/21 at 04:59 Dextrose (Dextrose 50%-Water Syringe) 12.5 gm PRN Q15MIN PRN IV SEE COMMENTS; Start 03/25/21 at 05:45 Dextrose (Dextrose 50%-Water Syringe) 25 gm 1X ONCE IV Last administered on 03/25/21at 11:58; Start 03/25/21 at 12:00; Stop 03/25/21 at 12:03; Status DC Dextrose (Dextrose 50%-Water Syringe) 25 gm 1X ONCE IV Last administered on 03/25/21at 12:35; Start 03/25/21 at 12:30; Stop 03/25/21 at 12:31; Status DC Dextrose 500 ml @ 0 mls/hr CONT PRN IV SEE I/O RECORD Last administered on 03/25/21at 13:29; Start 03/25/21 at 12:30 Vancomycin HCl (Vancomycin Oral Solution) 125 mg [id number] PO Last administered on 03/25/21at 13:34; Start 03/25/21 at 13:00 Lactobacillus Rhamnosus (Culturelle) 1 cap BID PO ; Start 03/25/21 at 14:00 Tamsulosin HCl (Flomax) 0.8 mg QHS PO ; Start 03/25/21 at 21:00 Morphine Sulfate (Morphine Sulfate) 4 mg PRN Q4HRS PRN IV PAIN; Start 03/25/21 at 17:30 Morphine Sulfate (Roxanol Conc) 5 mg PRN Q3HRS PRN SL MODERATE TO SEVERE PAIN; Start 03/26/21 at 09:15 Active Scripts Active Reported Voltaren Arthritis Pain (Diclofenac Sodium) 20 Gm Gel..gram. 1 % TP QID Buspirone Hcl 5 Mg Tablet 7.5 Mg PO BID Finasteride 5 Mg Tablet 1 Tab PO DAILY Glimepiride 2 Mg Tablet 1 Tab PO DAILY Midodrine Hcl 5 Mg Tablet 5 Mg PO DAILY Fish Oil 1,000 mg Softgel (Daphne-3/Dha/Epa/Fish Oil) 1,000 Mg Capsule 1,000 Mg PO DAILY Omeprazole 20 Mg Capsule. 1 Cap PO DAILY Ferrous Sulfate 325 Mg Tablet 1 Tab PO DAILY Loperamide (Loperamide Hcl) 2 Mg Tablet 1 Tab PO Q4HRS 30 Days Clotrimazole 10 Mg Evans 1 Tab PO 5XDAY Glimepiride 2 Mg Tablet 1 Tab PO DAILY Atorvastatin Calcium 80 Mg Tablet 80 Mg PO QHS Flomax (Tamsulosin Hcl) 0.4 Mg Cap.er.24h 1 Cap PO BID Aspirin 81 Mg Tab.chew 1 Tab PO DAILY Allergies Allergies: Coded Allergies: No Known Drug Allergies (Unverified , 03/25/21) ROS Review of System CONFUSED Physical Exam General: Alert, Cooperative, No acute distress HEENT: Atraumatic, PERRLA Lungs: Clear to auscultation Heart: Regular rate Abdomen: Normal bowel sounds, Soft, No tenderness Extremities: No cyanosis Skin: No breakdown Neuro: Other (CONFUSED) Psych/Mental Status: Other (FLAT AFFECT) MUSCULOSKELETAL: No joint tenderness, No swelling, Other (LEFT FA AVF HAS A GOOD THRILL AND BRUIT) Vitals VITALS Vital Signs Date Time Temp Pulse Resp B/P (MAP) Pulse Ox O2 Delivery O2 Flow Rate FiO2 03/26/21 11:00 97.3 87 22 115/36 (62) 92 Room Air 97.3 03/25/21 20:00 2.0 Labs Labs Laboratory Tests Test 03/24/21 12:15 03/25/21 01:40 03/25/21 02:28 03/25/21 05:06 Urine Collection Type Unknown Urine Color Rosio Urine Clarity Turbid Urine pH 7.0 (<5.0-8.0) Urine Specific [place] 1.015 (1.000-1.030) Urine Protein >=300 mg/dL (NEG-TRACE) Urine Glucose (UA) Negative mg/dL (NEG) Urine Ketones (Stick) Negative mg/dL (NEG) Urine Blood Large (NEG) Urine Nitrite Negative (NEG) Urine Bilirubin Negative (NEG) Urine Urobilinogen Dipstick 0.2 mg/dL (0.2 mg/dL) Urine Leukocyte Esterase Large (NEG) Urine RBC 3-5 /HPF (0-2) Urine WBC Tntc /HPF (0-4) Urine Squamous Epithelial Cells None /LPF Urine Bacteria Few /HPF (0-FEW) White Blood Count 14.2 x10^3/uL (4.0-11.0) Red Blood Count 3.37 x10^6/uL (4.30-5.70) Hemoglobin 10.2 g/dL (13.0-17.5) Hematocrit 31.8 % (39.0-53.0) Mean Corpuscular Volume 94 fL (79-100) Mean Corpuscular Hemoglobin 30 pg (25-35) Mean Corpuscular Hemoglobin Concent 32 g/dL (31-37) Red Cell Distribution Width 15.7 % (11.5-14.5) Platelet Count 269 x10^3/uL (140-400) Neutrophils (%) (Auto) 89 % (31-73) Lymphocytes (%) (Auto) 5 % (24-48) Monocytes (%) (Auto) 6 % (0-9) Eosinophils (%) (Auto) 0 % (0-3) Basophils (%) (Auto) 0 % (0-3) Neutrophils # (Auto) 12.6 x10^3/uL (1.8-7.7) Lymphocytes # (Auto) 0.7 x10^3/uL (1.0-4.8) Monocytes # (Auto) 0.8 x10^3/uL (0.0-1.1) Eosinophils # (Auto) 0.0 x10^3/uL (0.0-0.7) Basophils # (Auto) 0.0 x10^3/uL (0.0-0.2) Prothrombin Time 14.9 SEC (11.7-14.0) Prothromb Time International Ratio 1.2 (0.8-1.1) Sodium Level 135 mmol/L (136-145) Potassium Level 3.8 mmol/L (3.5-5.1) Chloride Level 100 mmol/L (98-107) Carbon Dioxide Level 24 mmol/L (21-32) Anion Gap 11 (6-14) Blood Urea Nitrogen 51 mg/dL (8-26) Creatinine 8.8 mg/dL (0.7-1.3) Estimated GFR (Cockcroft-Gault) 5.8 BUN/Creatinine Ratio 6 (6-20) Glucose Level 40 mg/dL (70-99) Lactic Acid Level 1.4 mmol/L (0.4-2.0) Calcium Level 7.9 mg/dL (8.5-10.1) Total Bilirubin 0.5 mg/dL (0.2-1.0) Aspartate Amino Transf (AST/SGOT) 13 U/L (15-37) Alanine Aminotransferase (ALT/SGPT) 16 U/L (16-63) Alkaline Phosphatase 129 U/L (46-116) Troponin I High Sensitivity 16 ng/L (4-75) Total Protein 5.3 g/dL (6.4-8.2) Albumin 1.3 g/dL (3.4-5.0) Albumin/Globulin Ratio 0.3 (1.0-1.7) SARS-CoV-2 RNA (CJ) Negative (Negative) SARS-CoV-2 Antigen (Rapid) Negative (NEGATIVE) Glucose (Fingerstick) 100 mg/dL (70-99) 93 mg/dL (70-99) Test 03/25/21 11:56 03/25/21 14:10 03/25/21 15:03 03/25/21 17:32 Glucose (Fingerstick) 33 mg/dL (70-99) 153 mg/dL (70-99) 151 mg/dL (70-99) 98 mg/dL (70-99) Test 03/25/21 19:01 03/25/21 23:04 03/26/21 01:03 03/26/21 03:02 Glucose (Fingerstick) 88 mg/dL (70-99) 102 mg/dL (70-99) 103 mg/dL (70-99) 97 mg/dL (70-99) Test 03/26/21 05:00 03/26/21 07:37 Glucose (Fingerstick) 83 mg/dL (70-99) 66 mg/dL (70-99) Laboratory Tests Test 03/25/21 11:56 03/25/21 14:10 03/25/21 15:03 03/25/21 17:32 Glucose (Fingerstick) 33 mg/dL (70-99) 153 mg/dL (70-99) 151 mg/dL (70-99) 98 mg/dL (70-99) Test 03/25/21 19:01 03/25/21 23:04 03/26/21 01:03 03/26/21 03:02 Glucose (Fingerstick) 88 mg/dL (70-99) 102 mg/dL (70-99) 103 mg/dL (70-99) 97 mg/dL (70-99) Test 03/26/21 05:00 03/26/21 07:37 Glucose (Fingerstick) 83 mg/dL (70-99) 66 mg/dL (70-99) Images Images EXAM: CT OF THE CHEST, ABDOMEN AND PELVIS WITH CONTRAST. HISTORY: Fall, pain. TECHNIQUE: Computed tomography of the chest, abdomen and pelvis was performed after the intravenous administration of iodinated contrast. One or more of the following individualized dose reduction techniques were utilized for this examination: 1. Automated exposure control. 2. Adjustment of the mA and/or kV according to patient size. 3. Use of iterative reconstruction technique. COMPARISON: None. FINDINGS: Bone windows reveal no suspicious lesions. 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 There are no pathologically enlarged mediastinal or axillary lymph nodes. There is no pleural or pericardial effusion. The heart is not enlarged. There are atherosclerotic calcifications of the coronary arteries. There is atelectasis in the left greater than right bases. There is a calcified granuloma in the left upper lobe. The left hemidiaphragm is moderately elevated. Gallstones are noted. The liver, spleen, pancreas, and adrenal glands are unremarkable. There is moderate bilateral renal atrophy. There are no pathologically enlarged lymph nodes. There is wall thickening of the colon on the left greater than right. There is no small bowel obstruction. Portions of the left abdomen are excluded from the [id number]. A bladder diverticulum anteriorly measures 15 mm. IMPRESSION: 1. Wall thickening of the colon on the left greater than right is consistent with colitis. 2. Cholelithiasis. Electronically signed by: Jose Jones MD (03/25/2021 5:22 AM) [facility] Assessment/Plan Assessment/Plan IMP HYPOGLYCEMIA ESRD ANEMIA DM II HTN DIARRHEA C DIF RECENTLY PLAN CORRECTING LOW BG I WAS INFORMED THAT PT AND FAMILY HAVE DECIDED AGAINST CONTINUING DIALYSIS I CONFIRMED THIS WITH PT. HE STATES THAT HE DOES NOT TOLERATE IT WELL FAMILY PART OF DECISION MAKING PROCESS FOR PT HOSPICE PLANS BEING MADE I WILL SIGN OFF PRETTY ABAD MD Mar 26, 2021 11:47
--- NOTE | 2021-03-26 12:34 | SNU/HH DC ---
DISCHARGE ORDERS DISCHARGE INFORMATION: DISCHARGE DATE: Mar 26, 2021 FINAL DIAGNOSIS Problems Medical Problems: (1) Colitis Status: Acute (2) Hypoglycemia Status: Acute (3) Sacral pressure sore Status: Acute (4) Separation of right acromioclavicular joint Status: Acute CONDITION ON DISCHARGE: Guarded CODE STATUS: Code Status: DNR/DNI HOSPICE: HOSPICE: Yes HOSPICE EVAL & TREAT: Yes POST DISCHARGE ORDERS: ACTIVITY ORDERS: Activity as tolerated DIET AFTER DISCHARGE: Renal DISCHARGE MEDICATIONS: Home Meds Reported Medications Diclofenac Sodium (Voltaren Arthritis Pain) 20 Gm Gel..gram., 1 % TP QID, EACH 03/25/21 Buspirone Hcl (BUSPIRONE HCL) 5 Mg Tablet, 7.5 MG PO BID, #60 TAB 2 Refills 03/25/21 Finasteride (FINASTERIDE) 5 Mg Tablet, 1 TAB PO DAILY, #30 TAB 11 Refills 03/25/21 Midodrine Hcl (MIDODRINE HCL) 5 Mg Tablet, 5 MG PO DAILY, TAB 03/25/21 Talmage-3/Dha/Epa/Fish Oil (Fish Oil 1,000 mg Softgel) 1,000 Mg Capsule, 1000 MG PO DAILY, CAP 03/25/21 Omeprazole (OMEPRAZOLE) 20 Mg Capsule.dr, 1 CAP PO DAILY, #30 CAP 5 Refills 03/25/21 Ferrous Sulfate (FERROUS SULFATE) 325 Mg Tablet, 1 TAB PO DAILY, #30 TAB 3 Refills 03/25/21 Loperamide Hcl (LOPERAMIDE) 2 Mg Tablet, 1 TAB PO Q4HRS for loose stool for 30 Days, #180 TAB 0 Refills 03/25/21 Clotrimazole (CLOTRIMAZOLE) 10 Mg Evans, 1 TAB PO 5XDAY, #35 TAB 03/25/21 Atorvastatin Calcium (Atorvastatin Calcium) 80 Mg Tablet, 80 MG PO QHS for FOR HIGH CHOLESTEROL, TAB 03/25/21 Tamsulosin Hcl (FLOMAX) 0.4 Mg Cap.er.24h, 1 CAP PO BID, #30 CAP 11 Refills 03/25/21 Aspirin (ASPIRIN) 81 Mg Tab.chew, 1 TAB PO DAILY, #30 TAB 3 Refills 03/25/21 Discontinued Reported Medications Glimepiride (GLIMEPIRIDE) 2 Mg Tablet, 1 TAB PO DAILY, #30 TAB 5 Refills 03/25/21 Glimepiride (GLIMEPIRIDE) 2 Mg Tablet, 1 TAB PO DAILY, #30 TAB 5 Refills 03/25/21 FEDERICO MYRICK MD Mar 26, 2021 12:34
[2021-03-26 15:00] VITALS: BP 89/45
--- NOTE | 2021-03-26 16:29 | NUR ---
Pt discharged to [facility] in [place]. Family aware and will meet pt there. Only belongings were a blanket that was given to transportation. [facility] to [facility] and taken by transportation.
--- NOTE | 2021-03-26 16:43 | NUR ---
Report given to
--- NOTE | 2021-03-26 23:39 | PN ---
DATE: 03/26/2021 SUBJECTIVE: The patient is resting flat in bed, in no apparent distress. On questioning him, he denied any pain, particularly denied any pain in his shoulder. He denied any diarrhea. Unfortunately, he lost his IV line and his blood sugar is only 66. PHYSICAL EXAMINATION: GENERAL: When I examined him, he was pale, not jaundiced or cyanosed, no thyromegaly. No jugular venous distention. No lower limb edema. VITAL SIGNS: His heart rate was 87, blood pressure was 83/54, temperature was 97.6, respiratory rate 22, and oxygen saturation was 88% on room air. HEAD, EYES, EARS, NOSE AND THROAT: Normocephalic, atraumatic. NECK: Supple. HEART: Showed normal first and second heart sounds. No gallop, rub or murmur. CHEST: Shows central trachea, equal bilateral chest expansion, air entry, vesicular breath sounds. No crepitation or rhonchi. ABDOMEN: Distended, soft, and nontender. NEUROLOGIC: He is definitely more awake and alert, responding appropriately. All cranial nerves intact. He moves upper extremities. He has right below-knee amputation. He has sacral decubitus ulcer. LABORATORY DATA: As of yesterday showed white cell count 14,000, hemoglobin 10, hematocrit 32, MCV 94 and platelet count 296,000. His chemistry obviously is variable, although his sodium was 135, potassium 3.8, chloride 100, bicarbonate 24, anion gap of 11, BUN 51, and creatinine 8.8. Estimated GFR was 6 mL per minute. ASSESSMENT: This is an 85-year-old male patient who was admitted with unwitnessed fall. He was diagnosed with: 1. Hypoglycemia. 2. Separation of the right acromioclavicular joint and right rotator cuff tear. 3. Sacral decubitus ulcer. 4. Clostridium difficile colitis. 5. End-stage renal disease, on hemodialysis. 6. Severe protein-calorie malnutrition. PLAN: Basically the plan is to continue with oral vancomycin. The patient does not want to continue on hemodialysis anymore and his family would like him to go on hospice and be admitted to a [facility] near where his and daughter lives. I spoke at length with his daughter and apparently she, her sister and her mother are coming today to make the decision. If no other options available, they are willing to send him to [facility] hosp[facility]. ONELIA/DUKE DR: Nasra TID: [id number]
== END 2021-03-26 16:45 | disposition hospice, inpatient (51) ==
LOC: ER 23:36 → ED HOLD 03-25 05:32 → 4 NORTH 03-25 14:37
PROVIDERS: ADMIT Internal Medicine; ATTEND Internal Medicine
DX: E11.649 Type 2 diabetes mellitus with hypoglycemia without coma (principal); Z20.822 Contact with and (suspected) exposure to COVID-19; S43.101A Unspecified dislocation of right acromioclavicular joint, initial encounter; I12.0 Hypertensive chronic kidney disease with stage 5 chronic kidney disease or end stage renal disease; N18.6 End stage renal disease; E11.22 Type 2 diabetes mellitus with diabetic chronic kidney disease; D63.1 Anemia in chronic kidney disease; A04.72 Enterocolitis due to Clostridium difficile, not specified as recurrent; E43 Unspecified severe protein-calorie malnutrition; K52.9 Noninfective gastroenteritis and colitis, unspecified; E78.5 Hyperlipidemia, unspecified; J34.1 Cyst and mucocele of nose and nasal sinus; K80.20 Calculus of gallbladder without cholecystitis without obstruction; L89.159 Pressure ulcer of sacral region, unspecified stage; M75.101 Unspecified rotator cuff tear or rupture of right shoulder, not specified as traumatic; N40.0 Benign prostatic hyperplasia without lower urinary tract symptoms; Z51.5 Encounter for palliative care; Z89.511 Acquired absence of right leg below knee; Z79.899 Other long term (current) drug therapy; Z98.890 Other specified postprocedural states; Z99.2 Dependence on renal dialysis; W19.XXXA Unspecified fall, initial encounter; Y92.89 Other specified places as the place of occurrence of the external cause; Y93.89 Activity, other specified; Y99.8 Other external cause status
CPT/HCPCS: 36415; 70450; 71260; 72125; 73030; 74177; 80053; 81001; 82962; 83605; 84484; 85025; 85610; 87086; 87426; 93005; 96374; 96375; 96376; 99285; G0378; J2270; J3490; Q9967; U0003; U0005; G0379